=== PATIENT | female | born 1965 | race Caucasian/White ===

== ENCOUNTER 2016-04-10 08:09 | Outpatient (RCR) | payer OTHER | END 2016-07-04 | disposition still patient (30) | LOC: COL.RAD | DX: K59.09 Other constipation (principal) ==

== ENCOUNTER → 2021-06-20 | Outpatient (RCR) | payer OTHER | END | disposition home or self-care (01) | LOC: WSPT → WSOH 05-21 00:05 → WSPT 06-09 08:00 | DX: M54.9 Dorsalgia, unspecified (principal) ==

== ENCOUNTER 2021-07-08 13:30 | Outpatient (RCR) | payer OTHER | END 2021-07-18 | disposition still patient (30) | LOC: WSPT | DX: M54.6 Pain in thoracic spine (principal) ==

== ENCOUNTER 2021-11-07 08:47 | Emergency (ER) | payer BC, OTHER ==
[~2021-11-07] VITALS: Ht 175.3 cm; Wt 79.5 kg
[2021-11-07 08:56] VITALS: TEMP 98.3
[2021-11-07 10:18] LABS: BASO % 0.3 % (0.0-2.0); EOS # 0.1 K/mm3 (0.0-0.7); EOS % 1.3 % (0.0-4.0); GRAN # 4.3 K/mm3 (1.4-6.5); GRAN % 67.6 % (42.2-75.2); HEMOGLOBIN 13.3 g/dl (12.5-16.0); LYMPH # 1.6 K/mm3 (1.2-3.4); LYMPH % 25.4 % (20.0-51.0); MEAN CELL VOLUME 90 fl (80.0-100.0); MEAN CORPUSCULAR HEMOGLOBIN 31 pg (27-31); MEAN CORPUSCULAR HGB CONC 34 g/dl (33.0-37.0); MEAN PLATELET VOLUME 10.1 fl (7.4-10.4); MONO # 0.3 K/mm3 (0.1-0.6); MONO % 5.2 % (1.7-9.3); PLATELET COUNT 196 K/mm3 (130-400); RED BLOOD COUNT 4.35 M/mm3 (4.10-5.30); REDCELL DISTRIBUTION WIDTH-CV 12.8 % (11.5-14.5)
[2021-11-07 10:36] LABS: ANION GAP 9 mmol/L (7-16); BLOOD UREA NITROGEN 14 mg/dL (10-20); CALCIUM 8.7 mg/dL (8.4-10.2); CARBON DIOXIDE 26 mmol/L (22-29); CHLORIDE 107 mmol/L (98-107); CREATININE, serum 0.75 mg/dL (0.57-1.11); GLUCOSE 101 mg/dL (70-99); POTASSIUM 4.2 mmol/L (3.5-4.5); SODIUM 142 mmol/L (136-145)
[2021-11-07 10:50] LABS: TROPONIN-I < 0.010 ng/mL (0.00-0.033)
[2021-11-07] MEDS ORDERED: FLONASEALLERGY NS (11:09)
[2021-11-07 11:15] VITALS: BP 125/78; PULSE 60
== END 2021-11-07 11:38 | disposition home or self-care (01) ==
LOC: COL.ER 08:47
PROVIDERS: Emergency Medicine
DX: J32.9 Chronic sinusitis, unspecified (principal); J00 Acute nasopharyngitis [common cold]
CPT/HCPCS: J1200; J8540

== ENCOUNTER 2023-12-25 09:19 | Day surgery (SDC) | payer BC, OTHER ==
[~2023-12-25] VITALS: Ht 175.3 cm; Wt 82.6 kg
[~2023-12-25 09:19] MED LIST: FLONASEALLERGY NS; LR 1,000 ML IV SCH; Ondansetron 4 MG/2 ML VIAL IV PRN
[2023-12-25 09:41] VITALS: BP 105/66; PULSE 70; TEMP 97.2
[2023-12-25] MEDS ORDERED: PEPCID40 MG PO (09:51)
[2023-12-25] MEDS ORDERED: IMITREX50 MG PO (09:51)
[2023-12-25] MEDS ORDERED: ASTELIN NASAL S34 ML NS (09:52)
[2023-12-25] MEDS ORDERED: ALLEGRA 180MG180 MG PO (09:52)
[2023-12-25] MEDS ORDERED: Lidocaine PF 2% (20 MG/ML) 5 ML VIAL ONE (10:39)
[2023-12-25 11:10] VITALS: BP 113/88; PULSE 70; TEMP 97.5
[2023-12-25 11:25] VITALS: BP 105/76; PULSE 74
[2023-12-25 11:40] VITALS: BP 117/75; PULSE 68
--- NOTE | 2023-12-25 12:00 | NUR ---
1110 RETURNS TO ROOM 4 PER CART. AWAKE, ALERT. RESP UNLABORED. AMBULATES TO RECLINER WITH STAND BY ASSIST. DENIES NAUSEA, ABD/CHEST PAIN OR DYSPHAGIA. VITAL SIGNS OBTAINED. CALL LIGHT AT SIDE. IN ROOM 1125 TOL[address] PO JUICE WITHOUT NAUSEA. SWALLOWS WITHOUT DIFFICULTY 1135 DISCHARGE INSTRUCTIONS REVIEWED. PATIENT VERBALIZES UNDERSTANDING. COPY PROVIDED IN DISCHARGE FOLDER 1145 DR. MTZ HERE TO VISIT WITH PATIENT 1200 DRESSES SELF
== END 2023-12-25 12:04 | disposition home or self-care (01) ==
LOC: SDCO 09:19
DX: Z12.11 Encounter for screening for malignant neoplasm of colon (principal); K57.30 Diverticulosis of large intestine without perforation or abscess without bleeding; K64.0 First degree hemorrhoids; K44.9 Diaphragmatic hernia without obstruction or gangrene; K22.2 Esophageal obstruction
CPT/HCPCS: J2704; J7120